=== PATIENT | female | born 1965 | race Two or more races ===

== ENCOUNTER 2018-05-03 08:31 | Emergency (ER) | payer SELFPAY ==
[~2018-05-03] VITALS: Ht 147.3 cm; Wt 71.2 kg
[2018-05-03 08:34] VITALS: BP 127/52
[2018-05-03] MEDS ORDERED: TETRACAINE HCL 0.5% OPTH(EYE) SOLN 4ML ONE (08:57)
[2018-05-03] MEDS ORDERED: TETRACAINE HCL 0.5% OPTH(EYE) SOLN 4ML EACHEYE ONE (09:00)
[2018-05-03] MEDS ORDERED: TETRACAINE HCL 2 % TOP SOL 30ML MT ONE (09:00)
[2018-05-03] MEDS ORDERED: FLUORESCEIN SOD 1 MG TEST STRIP OP ONE ×2 (09:00→09:15)
== END 2018-05-03 09:18 | disposition home or self-care (01) ==
LOC: ER 08:31
DX: H10.31 Unspecified acute conjunctivitis, right eye (principal); I10 Essential (primary) hypertension